=== PATIENT | female | born 1990 | race Caucasian/White ===

== ENCOUNTER 2017-11-13 14:48 | Emergency (ER) | payer SELFPAY ==
[2017-11-13 14:59] VITALS: BP 116/64
[2017-11-13] MEDS ORDERED: ONDANSETRON 4 MG TAB.RAPDIS PO ONE (15:16)
--- NOTE | 2017-11-13 15:21 | ER Document Report ---
HPI - HPI Pain Level: 3 Notes: Patient is a 27-year-old female who is approximately 6-7 weeks who presents to the ED complaining of intermittent nausea and vomiting over the last week. Patient states that she vomited 3 times today, but has been keeping water down. Patient states that she missed work and does need a work note. Patient states that she does not have any nausea medication at home set up an appointment with an ACADEMIC MANAGER and does not have a family doctor. She is otherwise urinating normally and having normal bowel movements. Patient states that she does not have any pain anywhere. She has not had any vaginal bleeding, discharge, or odor. Denies any headache, fever, URI, sore throat, chest pain, palpitations, syncope, cough, shortness of breath, wheeze, dyspnea, abdominal pain, nausea/vomiting/diarrhea, urinary retention, dysuria, hematuria, back pain , loss of control of bowel or bladder, numbness/tingling, or rash. - ROS Systems Reviewed and Negative: Yes All other systems reviewed and negative Past Medical History - Social History Smoking Status: Never Smoker Chew tobacco use (# tins/day): No Frequency of alcohol use: Occasional Drug Abuse: None Family History: Reviewed & Not Pertinent Patient has suicidal ideation: No Patient has homicidal ideation: No Renal/ Medical History: Denies: Hx Peritoneal Dialysis Vertical Provider Document - CONSTITUTIONAL Agree With Documented VS: Yes Notes: PHYSICAL EXAMINATION: GENERAL: Well-appearing, well-nourished and in no acute distress. HEAD: Atraumatic, normocephalic. EYES: Pupils equal round and reactive to light, extraocular movements intact, sclera anicteric, conjunctiva are normal. ENT: Nares patent and without discharge. oropharynx clear without exudates. No tonsilar hypertrophy or erythema. Moist mucous membranes. NECK: Normal range of motion, supple without lymphadenopathy LUNGS: Breath sounds clear to auscultation bilaterally and equal. No wheezes rales or rhonchi. HEART: Regular rate and rhythm without murmurs, rubs, gallops. ABDOMEN: Soft, nontender, nondistended abdomen. No guarding, no rebound. No masses appreciated. Normal bowel sounds present. No CVA tenderness bilaterally. : deferred. Musculoskeletal: FROM to passive/active. Strength 5+/5. Extremities: No cyanosis, clubbing, or edema b/l. Peripheral pulses 2+. Capillary refill less than 3 seconds. NEUROLOGICAL: Normal speech, normal gait. PSYCH: Normal mood, normal affect. SKIN: Warm, Dry, normal turgor, no rashes or lesions noted. - INFECTION CONTROL TRAVEL OUTSIDE OF THE [place] IN LAST 30 DAYS: No Course - Re-evaluation Re-evalutation: 11/13/17 15:55 Patient is an afebrile, well-hydrated, 27-year-old female who presents to the ED with nausea and vomiting in early . Vitals are acceptable without any significant tachycardia, tachypnea, or hypoxia. PE is otherwise unremarkable. Patient's abdomen is soft nontender. Patient is nontoxic- appearing and is tolerating p.o. without difficulties. Patient was given Zofran. No labs or imaging warranted at this time based on H&P and is reviewed with Dr. Ryan. Low suspicion for any acute abdomen, sepsis, meningitis, severe dehydration. Advised patient to schedule an appoint with ACADEMIC MANAGER for recheck. Return to the ED with any worsening/concerning symptoms otherwise as reviewed in discharge. Patient is in agreement. - Vital Signs Vital signs: Temp Pulse Resp BP Pulse Ox 98.4 F 60 18 116/64 100 11/13/17 14:55 11/13/17 14:55 11/13/17 14:55 11/13/17 14:55 11/13/17 14:55 Discharge - Discharge Clinical Impression: Nausea and vomiting Qualifiers: Vomiting type: unspecified Vomiting Intractability: non-intractable Qualified Code(s): R11.2 - Nausea with vomiting, unspecified Condition: Stable Disposition: HOME, SELF-CARE Additional Instructions: Maintain adequate fluid and food intake Perkins diet (B.R.A.T.) Bananas, rice, apples, toast, etc Zofran as needed tylenol if needed Monitor for any worsening symptoms Make sure you are staying hydrated enough to urinate and have normal BM's Recheck with your PCM/OBGYN in 3-5 days Consider consult with Gastroenterology for ongoing/worsening symptoms Return to the ED with any worsening symptoms and/or development of fever, headache, chest pain, palpitations, syncope, shortness of breath, trouble breathing, abdominal pain, n/v/d, blood in stool/urine, weakness, or other worsening symptoms that are concerning to you. Prescriptions: Ondansetron [Zofran Odt 4 mg Tablet] 1 - 2 tab PO Q4H PRN #15 tab.rapdis PRN Reason: For Nausea/Vomiting Forms: Return to Work Referrals: [facility] [Provider Group] - Follow up in 3-5 days
== END 2017-11-13 16:09 | disposition home or self-care (01) ==
LOC: ER 14:48
DX: O21.9 Vomiting of pregnancy, unspecified (principal); Z3A.00 Weeks of gestation of pregnancy not specified
CPT/HCPCS: 99283; S0119

== ENCOUNTER 2017-11-15 23:27 | Emergency (ER) | payer SELFPAY ==
[2017-11-15] MEDS ORDERED: ONDANSETRON 4 MG TAB.RAPDIS PO ONE (23:41)
[2017-11-15] MEDS ORDERED: PROMETHAZINE HCL INJ 25 MG/1 ML VIAL IM ONE (23:48)
--- NOTE | 2017-11-15 23:52 | ER Document Report ---
ED General - General Chief Complaint: Nausea/Vomiting Stated Complaint: NAUSEA/VOMITING Time Seen by Provider: 11/15/17 23:43 Notes: Patient is a 27-year-old female presents with complaint of vomiting during . This is her second . She is approximately 6-7 weeks . She has not yet had an ultrasound since becoming . She was here 2 days ago and given Zofran. She says that when she received Zofran here does not take her nausea but did help keep her from vomiting. She has took it once at home. She did not fully relieve her nausea so she did not take it anymore. She said she has continued have some vomiting now started, a little bit lightheaded and dizzy. She is also developed some abdominal pain does mostly over the left side of her abdomen. No vaginal bleeding. She said some mild abnormal vaginal discharge which she said could just be because she is but she is not sure. No fevers. No dysuria. No other complaints at this time. TRAVEL OUTSIDE OF THE [place] IN LAST 30 DAYS: No - Related Data Allergies/Adverse Reactions: diphenhydramine [From Benadryl] Adverse Reaction (Verified 11/13/17 14:52) Penicillins Adverse Reaction (Verified 11/13/17 14:52) Past Medical History - Social History Smoking Status: Never Smoker Frequency of alcohol use: None Drug Abuse: None Family History: Reviewed & Not Pertinent Renal/ Medical History: Denies: Hx Peritoneal Dialysis Review of Systems - Review of Systems Notes: My Normal Review Basic REVIEW OF SYSTEMS: CONSTITUTIONAL : Denies fever, chills, or sweats. Denies recent illness. RESPIRATORY: Denies cough, cold, or chest congestion. Denies shortness of breath, difficulty breathing, or wheezing. GASTROINTESTINAL: Denies abdominal pain. Denies nausea, vomiting, or diarrhea. GENITOURINARY: Denies difficulty urinating, painful urination, burning, frequency, or blood in urine. FEMALE GENITOURINARY: Denies vaginal bleeding, abnormal or irregular periods. LMP: Early MUSCULOSKELETAL: Denies neck or back pain or joint pain or swelling. SKIN: Denies rash or skin lesions. NEUROLOGICAL: Denies altered mental status or loss of consciousness. Denies headache. Denies weakness or paralysis or loss of use of either side. Denies problems with gait or speech. Denies sensory or motor loss. ALL OTHER SYSTEMS REVIEWED AND NEGATIVE. Physical Exam - Vital signs Vitals: Temp Pulse Resp BP Pulse Ox 98.9 F 91 18 104/61 98 11/15/17 23:34 11/15/17 23:34 11/15/17 23:34 11/15/17 23:34 11/15/17 23:34 - Notes Notes: General Appearance: Well nourished, alert, cooperative, no acute distress, no obvious discomfort. Vitals: reviewed, See vital signs table. Head: no swelling or tenderness to the head Eyes: PERRL, EOMI, Conjuctiva clear Mouth: No decreasd moisture Lungs: No wheezing, No rales, No rhonci, No accessory muscle use, good air exchange bilaterally. Heart: Normal rate, Regular rythm, No murmur, no rub Abdomen: Normal BS, soft, No rigidity, mild epigastric and left upper quadrant abdominal tenderness palpation, No guarding, no rebound, no abdominal masses, no organomegaly Pelvic:small excaoriated lesion just outside cervical os. some whitish discharge. No pain on exam. Pelvic exam performed with Female crtts Loida PENNINGTON at bedside. Extremities: strength 5/5 in all extremities, good pulses in all extremities, no swelling or tenderness in the extremities, no edema. Skin: warm, dry, appropriate color, no rash Neuro: speech clear, oriented x 3, normal affect, responds appropriately to questions. Course - Re-evaluation Re-evalutation: 11/16/17 02:14 Patient's testing to come back positive for gonorrhea. I entered the room the patient's if the other was in the room. I asked her if it is okay for release the results of her testing with other people in the room. She said it was okay. I did inform her that she is positive for gonorrhea that we should treat her and that should also make her sexual partners aware and have them treated as well. Patient agrees with this. Patient has an allergy to penicillin and Benadryl. She does not remember allergic reaction said that long time ago she had a reaction to penicillin and that he gave her Benadryl and the reaction, but worse. I think it is unlikely she is allergic to Benadryl. I suspect most likely that she does have worsening allergic reaction that was not helped by the Benadryl. I informed her that the treatment is Rocephin. Informed her that there is a small chance that she could have allergic reaction to this as well however it is appropriate antibiotic for her and she is understanding of this. I informed her that we will give her a dose I am here and watch for little while to make sure she does not have any allergic reaction. Patient is agreeable to this plan. Still awaiting results of her ultrasound. 11/16/17 03:30 Ultrasound came back showing intrauterine with little bit elevated heart rate. Suspect patient's increasing vomiting is related to her as well as probably the gonorrhea infection. We will treat her Rocephin. She tolerated Rocephin without any difficulty. I will write a prescription for the azithromycin as I do not want azithromycin because her vomiting that she has been nauseous over the last few days. This patient taken over the course of 4 days. Phenergan worked well for her. We will discharge home with prescription for Phenergan. I strongly encouraged her return to ER if she has intractable vomiting, fevers, recurrent abdominal pain, vaginal bleeding, she feels unwell. Also encourage patient to talk to her sexual partners about being treated and tested for gonorrhea as well. Also informed her that she does have a lesion on her cervix and is to be reevaluated by OB/ UC ARCHITECT. Patient says she will call her TRAUMA MANAGER doctor for follow-up. Patient agrees with plan will be discharged home. Dictation of this chart was performed using voice recognition software; therefore, there may be some unintended grammatical errors. - Vital Signs Vital signs: Temp Pulse Resp BP Pulse Ox 98.9 F 91 18 104/61 98 11/15/17 23:34 11/15/17 23:34 11/15/17 23:34 11/15/17 23:34 11/15/17 23:34 - Laboratory Result Diagrams: 11/16/17 00:55 11/16/17 00:55 Laboratory results interpreted by me: 11/16/17 11/16/17 11/16/17 00:04 00:55 00:55 MCV 77 L MCH 26.8 L Potassium 3.4 L BUN 6 L Direct Bilirubin 0.5 H AST 160 H ALT 213 H Beta HCG, Quant 465030.00 H N.gonorrhoeae DNA (PCR) DETECTED H Discharge - Discharge Clinical Impression: Gonococcal cervicitis Nausea and vomiting Qualifiers: Vomiting type: unspecified Vomiting Intractability: non-intractable Qualified Code(s): R11.2 - Nausea with vomiting, unspecified Qualifiers: Weeks of gestation: unspecified Qualified Code(s): Z34.90 - Encounter for supervision of normal , unspecified, unspecified trimester Condition: Good Additional Instructions: You do have a small cervical lesion that needs to be followed up by TRAUMA MANAGER to make sure it does not need biopsy. You do have Gonorrhea on you pelvic swab. This is most likely causing your vomiting to be worse in conjunction with your . you have been given a shot of an antibiotic here and I have given you a prescription for another antibiotic to take over the next 4 days. Please inform your sexual partner to be tested and treated. Please take vitamins. Do not drink alcohol or smoke. Please return tot eh ER immediately if you have vaginal bleeding, worsening pain, fevers, or feel unwell. Do not have sex again until you are retested and your testing is negative for gonorrhea. Prescriptions: Azithromycin 250 mg PO DAILY #4 tablet Promethazine HCl [Phenergan 25 mg Tablet] 1 tab PO Q6H PRN #15 tablet PRN Reason: Forms: Return to Work
[2017-11-16 00:20] LABS: T.VAGINALIS (WET MOUNT) NO TRICHOMONAS SEEN; WBCS (WET MOUNT) RARE WBCS SEEN; YEAST (WET MOUNT) NO YEAST SEEN
[2017-11-16] MEDS: NORMAL SALINE 1000 ML 1,000 ML IV PRN ×2 (01:05→02:47)
[2017-11-16 01:18] LABS: ALANINE AMINOTRANSFERASE 213 U/L (9-52); ALBUMIN 4.3 g/dL (3.5-5.0); ALKALINE PHOSPHATASE 109 U/L (38-126); ANION GAP 12 (5-19); ASPARTATE AMINO TRANSFERASE 160 U/L (14-36); BILIRUBIN,DIRECT 0.5 mg/dL (0.0-0.4); BILIRUBIN,TOTAL 1.2 mg/dL (0.2-1.3); BLOOD UREA NITROGEN 6 mg/dL (7-20); CARBON DIOXIDE 25 mmol/L (22-30); CHLORIDE 102 mmol/L (98-107); GLUCOSE 96 mg/dL (75-110); POTASSIUM 3.4 mmol/L (3.6-5.0); SODIUM 138.9 mmol/L (137-145); TOTAL PROTEIN 7.9 g/dL (6.3-8.2)
[2017-11-16 01:22] LABS: HEMATOCRIT 38.7 % (36.0-47.0); HEMOGLOBIN 13.5 g/dL (12.0-15.5); MEAN CORPUSCULAR HEMOGLOBIN 26.8 pg (27.0-33.4); MEAN CORPUSCULAR HGB CONC 34.9 g/dL (32.0-36.0); MEAN CORPUSCULAR VOLUME 77 fl (80-97); PLATELET COUNT 182 10^3/uL (150-450); RED BLOOD COUNT 5.04 10^6/uL (3.72-5.28); RED CELL DISTRIBUTION WIDTH 13.8 % (11.5-14.0); WHITE BLOOD COUNT 4.7 10^3/uL (4.0-10.5)
[2017-11-16 01:45] LABS: CHLAM PCR NOT DETECTED (NOT DETECT)
[2017-11-16 01:55] LABS: ABSOLUTE LYMPHOCYTES# (MANUAL) 2.2 10^3/uL (0.5-4.7); ABSOLUTE MONOCYTES # (MANUAL) 0.1 10^3/uL (0.1-1.4); ABSOLUTE NEUTROPHILS# (MANUAL) 2.4 10^3/uL (1.7-8.2); BAND NEUTROPHILS % (MANUAL) 4 % (3-5); BASOPHILS % (MANUAL) 0 % (0-2); EOSINOPHILS % (MANUAL) 0 % (0-6); LYMPHOCYTES % (MANUAL) 36 % (13-45); MONOCYTES % (MANUAL) 3 % (3-13); SEGMENTED NEUTROPHILS % (MAN) 46 % (42-78); TOTAL CELLS COUNTED 100
[2017-11-16 01:56] LABS: GON PCR DETECTED (NOT DETECT)
[2017-11-16 01:56] LABS: PLATELET CLUMPS PRESENT; PLATELET COMMENT ADEQUATE
[2017-11-16 01:57] LABS: ANISOCYTOSIS SLIGHT; HYPOCHROMASIA SLIGHT
[2017-11-16] MEDS ORDERED: CEFTRIAXONE INJ 250 MG VIAL IM ONE (02:13)
[2017-11-16] MEDS ORDERED: LIDOCAINE 1% INJ-PF (10 MG/ML) 30 ML SDV INFIL ONE (02:13)
--- NOTE | 2017-11-16 02:13 | RADIOLOGY REPORT (SQ) ---
EXAM DESCRIPTION: US TRANSVAGINAL COMPLETED DATE/TME: 11/15/2017 23:49 CLINICAL HISTORY: 27 years Female, abdominal pain in Comparison: None. TECHNIQUE: Transvaginal. LIMITATIONS: None. FINDINGS: Living intrauterine fetus measures 8w3d with SEGUNDO of 06/25/2018. Cardiac activity is 192-bpm. [place]-rump length is 1.86-cm. 3.3-cm right ovary, nonvisualized left ovary, 2.5-cm likely rightcorpus luteum, 2.1-cm cervical length, and no free fluid. IMPRESSION: Living 1st trimester intrauterine gestation. Nonspecific increased heart rate, 192-bpm.
[2017-11-16] MEDS ORDERED: PROMETHAZINE HCL 25 MG SUPP (4 SUPP/ER DISP) PR ONE (03:02)
[2017-11-16 04:31] VITALS: BP 109/59
[2017-11-16 12:39] LABS: PATH REVIEW PATHOLOGIST REVIEWED
== END 2017-11-16 04:10 | disposition home or self-care (01) ==
LOC: ER 23:27
DX: O21.9 Vomiting of pregnancy, unspecified (principal); O98.219 Gonorrhea complicating pregnancy, unspecified trimester; A54.03 Gonococcal cervicitis, unspecified; O26.899 Other specified pregnancy related conditions, unspecified trimester; R42 Dizziness and giddiness; R10.816 Epigastric abdominal tenderness; R10.812 Left upper quadrant abdominal tenderness; O76 Abnormality in fetal heart rate and rhythm complicating labor and delivery; Z3A.00 Weeks of gestation of pregnancy not specified
CPT/HCPCS: 99284; 96372; 96360; 96361; 36415; 87210; 84702; 85025; 80053; 87491; 87591; 76817; 93976; J3490 ×2; J2550; J7030; J0696